=== PATIENT | male | born 1975 | race Caucasian/White ===

== ENCOUNTER 2017-10-11 13:33 | Emergency (ER) | payer OTHER ==
[~2017-10-11] VITALS: Ht 177.8 cm; Wt 99.8 kg
[~2017-10-11 13:33] MED LIST: METOPROLOL SUCC25 M1 PO
--- NOTE | 2017-10-11 15:32 | ED GENERAL ADULT ---
History of Present Illness General Chief Complaint: General Adult Stated Complaint: HIGH BP Source: patient Exam Limitations: no limitations Vital Signs & Intake/Output Vital Signs & Intake/Output Vital Signs Date Time Temp Pulse Resp B/P B/P Pulse O2 O2 Flow FiO2 Mean Ox Delivery Rate 10/11 2015 99.1 70 18 155/94 98 Room Air 10/11 1910 97.8 77 12 156/92 98 Room Air 10/11 1707 98.2 76 18 146/92 98 Room Air 10/11 1636 97.6 76 16 172/112 10/11 1559 172/112 10/11 1343 97.6 76 16 99 Room Air Room Air Allergies Coded Allergies: No Known Allergies (07/03/16) Reconcile Medications Metoprolol Succinate 25 MG TAB 1 TAB PO DAILY BLOOD PRESSURE (Reported) TAKE 50 MG ONCE A DAY Triage Note: TRIAGE: 42 Y/O MALE PRESENTS C/O HIGH BP READINGS ON AUTOMATIC CUFF AT HOME THIS MORNIN/130, ETC. IN TRIAGE, BP MANUALLY 190/128. DENIES OTHER COMPLAINTS. Triage Nurses Notes Reviewed? yes Onset: Gradual Duration: day(s): Timing: recent history Injury Environment: home Severity: severe HPI: 42YO MALE with hx of HTN presents emergency department complaining of elevated blood pressure readings at home. Patient states that over the past few days his blood pressure readings have been elevated. Today blood pressure readings were especially high, 180/130 at home today. Following this very elevated reading the patient was feeling worried, began feeling lightheaded, his hands felt clammy. The patient called his parents and they reported here to the emergency department. Patient has had hypertension for about 1.5 years, just recently began metoprolol within the past 3-4 months, currently on 100 mg every morning, he took his medication today as prescribed. Patient's is scheduled to follow-up with his PCP on 10/14/17. Patient reports left-sided chest muscle strain beginning yesterday, worse with movement. Patient admits to daily alcohol consumption, 3 glasses of wine per day. He also has a significant family history of father with myocardial infarction at age 44. He denies chest pain, dyspnea, abdominal pain, nausea, vomiting, fevers, chills, headache, visual changes. (Geeta OCHOA,Manisha Ayala) Past History Travel History Traveled to [place] past 21 day No Medical History Any Pertinent Medical History? see below for history Cardiovascular: hypertension Surgical History Surgical History: non-contributory Psychosocial History What is your primary language Kazakh Tobacco Use: Current Daily Use Daily Tobacco Use Amount/Type: => 5 Cigarettes daily ETOH Use: occasional use Illicit Drug Use: marijuana Family History Family History, If Any: FATHER FH: myocardial infarction, Onset: 40-50. Hx Contributory? Yes (Manisha Bonilla) Review of Systems Review of Systems Constitutional: Reports: see HPI. EENTM: Reports: no symptoms. Respiratory: Reports: no symptoms. Cardiovascular: Reports: see HPI. GI: Reports: no symptoms. Genitourinary: Reports: no symptoms. Musculoskeletal: Reports: see HPI. Skin: Reports: no symptoms. Neurological/Psychological: Reports: no symptoms. Hematologic/Endocrine: Reports: no symptoms. Immunologic/Allergic: Reports: no symptoms. All Other Systems: Reviewed and Negative (Manisha Bonilla) Physical Exam Physical Exam General Appearance: well developed/nourished, no apparent distress, alert, awake Head: atraumatic, normal appearance Eyes: Bilateral: normal appearance, PERRL, EOMI. Ears, Nose, Throat: normal pharynx, hearing grossly normal Neck: normal inspection, supple, full range of motion Respiratory: normal breath sounds, no respiratory distress, lungs clear Cardiovascular: regular rate/rhythm Peripheral Pulses: 2+ radial (R), 2+ radial (L) Gastrointestinal: normal bowel sounds, soft, non-tender, no organomegaly Back: normal inspection, normal range of motion Extremities: normal inspection, normal range of motion, no edema Neurologic/Psych: no motor/sensory deficits, awake, alert, oriented x 3 Skin: intact, normal color, warm/dry Core Measures ACS in differential dx? Yes CVA/TIA Diagnosis: No Sepsis Present: No Sepsis Focused Exam Completed? No (Manisha Bonilla) Progress Differential Diagnoses I considered the following diagnoses in my evaluation of the patient: [ACS, hypertensive emergency, essential hypertension, ICH, AAA] Plan of Care: Orders Procedure Date/time Status Heart Healthy Diet 10/11 D Active TROPONIN LEVEL 10/11 1905 Complete EKG 10/11 1905 Active URINE DRUG SCREEN FOR ER ONLY 10/11 1551 Complete URINALYSIS 10/11 1551 Complete TROPONIN LEVEL 10/11 1551 Complete COMPREHENSIVE METABOLIC PANEL 10/11 1551 Complete CBC WITHOUT DIFFERENTIAL 10/11 1551 Complete EKG 10/11 1551 Active Laboratory Tests 10/11/17 1901: Troponin I < 0.01 10/11/17 1738: Urine Opiates Screen < 100.00, Methadone Screen < 40, Barbiturate Screen < 60, Ur Phencyclidine Scrn < 6.00, Amphetamines Screen < 100, U Benzodiazepines Scrn < 85, Urine Cocaine Screen < 50, Urine Cannabis Screen 78.90 H, Urine Color YEL , Urine Clarity CLEAR, Urine pH 6.0, Ur Specific [place] 1.025, Urine Protein NEG, Urine Ketones NEG, Urine Nitrite NEG, Urine Bilirubin NEG, Urine Urobilinogen 0.2, Ur Leukocyte Esterase NEG, Ur Microscopic EXAM NOT REQUIRED, Urine Hemoglobin NEG, Urine Glucose NEG 10/11/17 1606: Anion Gap 10, Estimated GFR > 60, BUN/Creatinine Ratio 22.9, Glucose 86, Calcium 9.5, Total Bilirubin 0.5, AST 33, ALT 63, Alkaline Phosphatase 43, Troponin I < 0.01, Total Protein 7.2, Albumin 4.3, Globulin 2.9, Albumin/Globulin Ratio 1.5, CBC w Diff NO MAN DIFF REQ, RBC 4.51 L, MCV 94.2 H, MCH 32.6 H, RDW 12.9, MPV 7.2 L, Gran % 57.2, Lymphocytes % 33.4, Monocytes % 8.7, Eosinophils % 0.5, Basophils % 0.2, Absolute Granulocytes 3.2, Absolute Lymphocytes 1.9, Absolute Monocytes 0.5, Absolute Eosinophils 0, Absolute Basophils 0, PUBS MCHC 34.6 Blood pressure improved following IV Hydralazine. PAtient's physical exam without acute abnormality. EKG is within normal limits. Troponin negative. Repeat EKG is unchanged. Second troponin negative. Patient feels ready to go home at this time. He has an appointment with his primary care doctor for this week, was recommended the patient follow-up in one to 2 days with his primary care doctor for further evaluation regarding his high blood pressure. Patient will continue metoprolol. He develops any symptoms or has further high blood pressure will return to the emergency department. Patient currently asymptomatic, no acute distress, comfortable. The patient agrees with the plan of care. The patient was discussed with Dr. Araya who agrees with the plan of care. Initial ED EKG: sinus rhythm @70bpm, nonspecific t wave changes Prior EKG: unchanged (07/03/16) Repeat EKG: unchanged (Manisha Bonilla) Departure Departure Disposition: HOME OR SELF CARE Condition: Stable Clinical Impression Primary Impression: Hypertension Qualifiers: Hypertension type: essential hypertension Qualified Code: I10 - Essential (primary) hypertension Referrals: Jeff Lemus MD (PCP/Family) Additional Instructions: Continue to check your blood pressure at home. Continue metoprolol blood pressure medication. If possible follow-up with your primary care doctor within the next 2 days. If you develop any symptoms such as chest pain, difficulty breathing, headache, abdominal plain, or elevated blood pressure please return immediately to the emergency department. Please note that there might be incidental findings in your evaluation that are unrelated to the current emergency department visit. Please notify your primary care doctor about this emergency department visit in order to obtain and review all of the testing performed so that these incidental findings can be monitored as needed. If you had an x-ray performed, please understand that some fractures may not be seen on the initial set of x-rays. If your symptoms persist you might need a repeat set of x-rays to check for such a fracture. If you had a laceration evaluated, please understand that foreign bodies such as glass or wood may not be visible to the naked eye or on plain x-rays. If the wound becomes red, swollen, increasingly more painful or if there is any drainage from the wound, please have it reevaluated by a physician for the possibility of a retained foreign body. If you're unable to follow up as outlined in the discharge instructions please return to the emergency department. Thank you for choosing the [facility] Emergency Department for your care. It was a pleasure to serve you today. Departure Forms: Customer Survey General Discharge Information (Manisha Bonilla) PA/TOLL TRANSMISSION WORKER Co-Sign Statement Statement: ED Attending supervision documentation- [] I saw and evaluated the patient. I have also reviewed all the pertinent lab results and diagnostic results. I agree with the findings and the plan of care as documented in the PA's/TOLL TRANSMISSION WORKER's documentation. [X] I have reviewed the ED Record and agree with the PA's/TOLL TRANSMISSION WORKER's documentation. [] Additions or exceptions (if any) to the PAs/TOLL TRANSMISSION WORKER's note and plan are summarized below: [] (Quiana OSBORN,Josiah Hua) Critical Care Note Critical Care Note Critical Care Time: non-applicable (Geeta OCHOA,Manisha Ayala)
[2017-10-11 16:15] LABS: ABSOLUTE BASOPHIL COUNT 0 /CUMM (0.0-0.2); ABSOLUTE EOSINOPHIL COUNT 0 /CUMM (0.0-0.7); ABSOLUTE GRANULOCYTE CT 3.2 /CUMM (1.4-6.5); ABSOLUTE LYMPH COUNT 1.9 /CUMM (1.2-3.4); ABSOLUTE MONOCYTE COUNT 0.5 /CUMM (0.10-0.60); BASOPHIL % 0.2 % (0.0-2.0); EOSINOPHIL % 0.5 % (0-5); GRANULOCYTE % 57.2 % (42.2-75.2); HEMATOCRIT 42.5 % (42-52); MEAN CORPUSCULAR HGB 32.6 PG (27.0-31.0); MEAN CORPUSCULAR HGB CONC 34.6 G/DL (33.0-37.0); MEAN CORPUSCULAR VOLUME 94.2 FL (80.0-94.0); MEAN PLATELET VOLUME 7.2 FL (7.4-10.4); PLATELET COUNT 290 /CUMM (130-400); RBC DISTRIBUTION WIDTH 12.9 % (11.5-14.5); RED BLOOD CELL CT 4.51 /CUMM (4.70-6.10); WHITE BLOOD CELL COUNT 5.6 /CUMM (4.8-10.8)
[2017-10-11 20:16] VITALS: BP 155/94
== END 2017-10-11 20:36 ==
LOC: ERH 13:33
PROVIDERS: Physician Assistant
DX: I10 Essential (primary) hypertension (principal)
CPT/HCPCS: 80307; 81003; 93005; 93010; 96374; J0360